=== PATIENT | male | born 1960 | race Caucasian/White ===

== ENCOUNTER → 2018-11-07 | Outpatient (CLI) | payer BC | LOC: RAD 13:34 | PROVIDERS: ATTEND Psychiatry & Neurology Neurology | DX: G93.1 Anoxic brain damage, not elsewhere classified (principal); Z53.8 Procedure and treatment not carried out for other reasons ==

== ENCOUNTER 2018-12-06 21:17 | Emergency (ER) | payer BC ==
[~2018-12-06] VITALS: Ht 177.8 cm; Wt 63.5 kg
[2018-12-06] MEDS ORDERED: TETANUS,DIPTH,PERTUSS P/F (BOOSTRIX) 0.5 ML VIAL IM ONE (21:45)
[2018-12-06] MEDS ORDERED: LIDOCAINE/EPI 2% 1:100,00 (XYLOCAINE) 20 ML VIAL INJ ONE (22:00)
--- NOTE | 2018-12-06 22:24 | ED Fall/Injury ---
General Chief Complaint: Trauma-Non Activation Stated Complaint: HEAD PAIN FROM FALL Source: family (, SON) (SAMIA COTTON DO) Allergies and Home Medications Allergies Coded Allergies: No Known Drug Allergies (Unverified , 12/06/18) Past Zdbhzds-Ohkeun-Zoqqfr Hx Patient Social History Alcohol Use: Denies Use Recreational Drug Use: No Smoking Status: Never a Smoker Recent Foreign Travel: No Contact w/Someone Who Travel: No Physical Abuse: No Sexual Abuse: No Mistreated: No Fear: No (SAMIA COTTON DO) Past Medical History Surgeries: No Respiratory: No Cardiac: Yes Heart Attack Genitourinary: No Gastrointestinal: No Musculoskeletal: No Endocrine: No HEENT: No Cancer: No Psychosocial: No (SAMIA COTTON DO) Physical Exam Vital Signs Capillary Refill : (SAMIA COTTON DO) Height, Weight, BMI Height: '" Weight: lbs. oz. kg; BMI Method: (SAMIA COTTON DO) Procedures/Interventions Wound Location: Face Wound Length (cm): 5.5 Wound's Depth, Shape: irregular, sub Q Wound Explored: clean Irrigated w/ Saline (ccs): 40 Anesthesia: Lidocaine w/ Epi Volume Anesthetic (ccs): 3 Suture: Ethlion Suture Size: 5-0 Number of Sutures: 12 Layer Closure?: 1 Number Deep Layer Sutures: 0 Progress Anesthetized with 3 mL of 2% lidocaine with epinephrine. Wound then scrubbed with chlorhexidine/saline solution and irrigated with saline. Wound edges then reapproximated and sutured with 12 simple interrupted sutures size 5-0 Ethilon. (EDUARDO AVILA APRN) Progress/Results/Core Measures Results/Orders My Orders Orders - EDUARDO AVILA APRN Lidocaine/Epi 2% 1:100,000 (Xylocaine/Ep (12/06/18 22:00) (EDUARDO AVILA APRN) Departure Impression Primary Impression: Status post fall Additional Impressions: Facial laceration Wtkgvmoxah-ehobpahxq-vwvrnul (DPT) vaccination administered at current visit Minor head injury without loss of consciousness Disposition: HOME, SELF-CARE Condition: Improved Departure-Patient Inst. Referrals: [facility] (PCP/Family) Primary Care Physician Patient Instructions: Diphtheria and Tetanus Toxoids, and Acellular Pertussis Vaccine, Laceration Repair With Stitches (DC), Minor Head Injury (DC), Preventing Falls in the Older Adult Add. Discharge Instructions: CLEAN WOUND TWICE A DAY WITH ANTIBACTERIAL SOAP AND WATER ON A Q-TIP, OTHERWISE KEEP CLEAN AND DRY SUTURES OUT IN 5-7 DAYS--RETURN TO ER FOR REMOVAL TYLENOL NEEDED FOR PAIN RETURN TO ER IF PROBLEMS All discharge instructions reviewed with patient and/or family. Voiced understanding. Scripts Sulfamethoxazole/Trimethoprim (Bactrim Ds Tablet) 1 Each Tablet 1 EACH PO BID, #20 TAB Prov: SAMIA COTTON DO 12/06/18 SAMIA COTTON DO Dec 06, 2018 22:24 EDUARDO AVILA APRN Dec 06, 2018 22:34
--- OUTSIDE RECORDS SUMMARY | 2018-12-06 22:26 | XMS REPORT ---
Author Author GARIMA Sesay Organization [facility] Address [address] [place] [address] Care Team Providers Care Sales Account Director Name Role Phone GARIMA Sesay Unavailable PROBLEMS Type Condition ICD9-CM Code [id number] Code Onset Dates Condition Status SNOMED Code Problem Mixed hyperlipidemia E78.2 Active 379767096 Problem Major depressive disorder with single episode, in full remission F32.5 Active 300582603 Problem Anoxic encephalopathy G93.1 Active 047345348 Problem Coronary artery disease involving [place] coronary artery of [place] heart without angina pectoris I25.10 Active [id number] ALLERGIES No Known Allergies ENCOUNTERS Encounter Location Date Diagnosis [place] [id number] [place] [address] December, Anoxic encephalopathy G93.1 [place] [id number] [place] [address] 5[address] December, Coronary artery disease involving [place] coronary artery of [place] heart without angina pectoris I25.10 ; Anoxic encephalopathy G93.1 ; Major depressive disorder with single episode, in full remission F32.5 and Mixed hyperlipidemia E78.2 [place] [id number] [place] [address] 18[address] Oct, Coronary artery disease involving [place] coronary artery of [place] heart without angina pectoris I25.10 ; Anoxic encephalopathy G93.1 ; Mixed hyperlipidemia E78.2 and Major depressive disorder with single episode, in full remission F32.5 [place] [id number] [place] [address] Oct, [place] [id number] [place] [address] Sep, Coronary artery disease involving [place] coronary artery of [place] heart without angina pectoris I25.10 and Anoxic encephalopathy G93.1 [place] [address] [facility]NOTE 3] [id number], [place] [address] Sep, Coronary artery disease involving [place] coronary artery of [place] heart without angina pectoris I25.10 [place] [address] [facility]NOTE 3] [id number], [place] [address] Sep, Coronary artery disease involving [place] coronary artery of [place] heart without angina pectoris I25.10 [place] [address] [facility]NOTE 3] [id number], [place] [address] Aug, Coronary artery disease involving [place] coronary artery of [place] heart without angina pectoris I25.10 and Anoxic encephalopathy G93.1 IMMUNIZATIONS No Known Immunizations SOCIAL HISTORY Never Assessed REASON FOR VISIT Head injury--CarleyleachMA, Refills on Venlafaxine, Pravastatin, Brilinta, Pota Chloride ER, Donepezil HCL, RisperiDone, Amantadine PLAN OF CARE Activity Details Follow Up needs establish care appointment, next available Reason:CAD, post PA VITAL SIGNS Weight 154.2 lbs 2017-08-29 Temperature 98.1 degrees Fahrenheit 2017-08-29 Heart Rate 90 bpm 2017-08-29 Respiratory Rate 20 2017-08-29 Blood pressure systolic 130 mmHg 2017-08-29 Blood pressure diastolic 58 mmHg 2017-08-29 MEDICATIONS Medication Instructions Dosage Frequency Start Date End Date Duration Status Pravastatin Sodium 40 mg Orally at bedtime 1 tablet Active Amantadine HCl 100 mg Orally as directed 2 capsules in the morning and 1 capsule in the evening Active Risperdal 2 MG Orally as directed 1/2 tablet in the morning, then three tablets at bedtime Active Brilinta 90 MG Orally Twice a day 1 tablet 12h Active Venlafaxine HCl ER 37.5 MG Orally Once a day 1 capsule with food 24h Active Potassium Chloride 10 MEQ Orally Twice a day 2 tablets with food 12h Active Donepezil HCl 10 mg Orally Once a day 1 tablet at bedtime 24h Aug, Active Donezepil HCl-10 mg 10 mg orally q day one tablet Active Aspirin 81 MG Orally Once a day 1 tablet 24h Aug, Active RESULTS No Results PROCEDURES No Known procedures INSTRUCTIONS MEDICATIONS ADMINISTERED No Known Medications MEDICAL (GENERAL) HISTORY Type Description Date Medical History out of hospital cardiac arrest- PEA then VTach- down time approx. 20 minutes Medical History [place]- stent to LAD and Circ Medical History Anoxic encephalopathy due to cardiac arrest Medical History splenic injury Medical History hyperlipidemia Surgical History Maker put in 2 stents 10/2016 Hospitalization History Hospitalization for Heart Attack 10/2016
--- OUTSIDE RECORDS SUMMARY | 2018-12-06 22:26 | XMS REPORT ---
Author Author ABRAHAMLALO Melton Organization [facility] Address [address] [place] [address] Care Team Providers Care Perioperative Tech Name Role Phone LALO ABRAHAM Unavailable PROBLEMS Type Condition ICD9-CM Code [id number] Code Onset Dates Condition Status SNOMED Code Problem Mixed hyperlipidemia E78.2 Active 146965397 Problem Major depressive disorder with single episode, in full remission F32.5 Active 381882561 Problem Anoxic encephalopathy G93.1 Active 240404664 Problem Coronary artery disease involving [place] coronary artery of [place] heart without angina pectoris I25.10 Active 9026378781040 ALLERGIES No Known Allergies ENCOUNTERS Encounter Location Date Diagnosis [facility] [id number] [place] [address] December, Anoxic encephalopathy G93.1 [facility] [id number] [place] [address] December, Coronary artery disease involving [place] coronary artery of [place] heart without angina pectoris I25.10 ; Anoxic encephalopathy G93.1 ; Major depressive disorder with single episode, in full remission F32.5 and Mixed hyperlipidemia E78.2 [facility] [id number] [place] [address] 24687- [address] 05 Oct, 2017 Coronary artery disease involving [place] coronary artery of [place] heart without angina pectoris I25.10 ; Anoxic encephalopathy G93.1 ; Mixed hyperlipidemia E78.2 and Major depressive disorder with single episode, in full remission F32.5 [facility] [id number] [place] [address] Oct, [facility] [id number] [place] [address] 629[address]- 27[address] Sep, Coronary artery disease involving [place] coronary artery of [place] heart without angina pectoris I25.10 and Anoxic encephalopathy G93.1 [facility] [address] [facility] [id number] [place] [address] Sep, Coronary artery disease involving [place] coronary artery of [place] heart without angina pectoris I25.10 [facility] [address] [facility] [id number], [place] [address] Sep, Coronary artery disease involving [place] coronary artery of [place] heart without angina pectoris I25.10 [place] [address] [facility] [id number], [place] [address] Aug, Coronary artery disease involving [place] coronary artery of [place] heart without angina pectoris I25.10 and Anoxic encephalopathy G93.1 IMMUNIZATIONS No Known Immunizations SOCIAL HISTORY Never Assessed REASON FOR VISIT Establish Care savanah amezcua, 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 (medicaid pending , wanting neurology referral once medicaid is in place) PLAN OF CARE Activity Details Follow Up 3 Months Reason:CHM/Anoxic injury VITAL SIGNS Height 70 in 2017-10-07 Weight 152.6 lbs 2017-10-07 Temperature 98.6 degrees Fahrenheit 2017-10-07 Heart Rate 94 bpm 2017-10-07 Respiratory Rate 20 2017-10-07 BMI 21.89 kg/m2 2017-10-07 Blood pressure systolic 118 mmHg 2017-10-07 Blood pressure diastolic 64 mmHg 2017-10-07 MEDICATIONS Medication Instructions Dosage Frequency Start Date End Date Duration Status Amantadine HCl 100 mg Orally 2 times a day 2 capsules in the morning and 1 capsule in the evening 12h Jul, 90 days Active Pravastatin Sodium 40 MG Orally Once a day 1 tablets 24h 90 days Active Risperdal 2 MG Orally 2 times a day 1/2 tablet in the morning, then three tablets at bedtime 12h 90 days Active Donepezil HCl 10 mg Orally Once a day 1 tablet at bedtime 24h Aug, Active Potassium Chloride 10 MEQ Orally Twice a day 2 tablets with food 12h Jul, 90 days Active Brilinta 90 MG Orally Twice a day 1 tablet 12h 90 days Active Venlafaxine HCl ER 37.5 MG Orally Once a day 1 capsule with food 24h 90 days Active RESULTS No Results PROCEDURES No Known [...]
--- OUTSIDE RECORDS SUMMARY | 2018-12-06 22:26 | XMS REPORT ---
Author Author ABRAHAMLALO Melton Organization [facility] Address [address] [place] [address] Care Team Providers Care Funeral Home Assistant Name Role Phone ABRAHAMLALO Melton Unavailable PROBLEMS Type Condition ICD9-CM Code [id number] Code Onset Dates Condition Status SNOMED Code Problem Mixed hyperlipidemia E78.2 Active 042765365 Problem Major depressive disorder with single episode, in full remission F32.5 Active 050003514 Problem Anoxic encephalopathy G93.1 Active 825565679 Problem Coronary artery disease involving [place] coronary artery of [place] heart without angina pectoris I25.10 Active 9217079316981 ALLERGIES No Information ENCOUNTERS Encounter Location Date Diagnosis [facility] [id number] [place] [address] December, Anoxic encephalopathy G93.1 [facility] [id number] [place] [address] 7[address]- [address] December, Coronary artery disease involving [place] coronary artery of [place] heart without angina pectoris I25.10 ; Anoxic encephalopathy G93.1 ; Major depressive disorder with single episode, in full remission F32.5 and Mixed hyperlipidemia E78.2 [facility] [id number] [place] [address] 35446- 67[address] 05 Oct, 2017 Coronary artery disease involving [place] coronary artery of [place] heart without angina pectoris I25.10 ; Anoxic encephalopathy G93.1 ; Mixed hyperlipidemia E78.2 and Major depressive disorder with single episode, in full remission F32.5 [facility] [id number] [place] [address] 29353- 6797 Oct, [facility] [id number] [place] [address] 05736- [address]28 Sep, Coronary artery disease involving [place] coronary artery of [place] heart without angina pectoris I25.10 and Anoxic encephalopathy G93.1 [facility] [address] [facility] [id number], [place] [address] Sep, Coronary artery disease involving [place] coronary artery of [place] heart without angina pectoris I25.10 [facility] [address] [facility] [id number], [place] [address] Sep, Coronary artery disease involving [place] coronary artery of [place] heart without angina pectoris I25.10 [facility] [address] [facility] [id number], [place] [address] Aug, Coronary artery disease involving [place] coronary artery of [place] heart without angina pectoris I25.10 and Anoxic encephalopathy G93.1 IMMUNIZATIONS No Known Immunizations SOCIAL HISTORY Never Assessed REASON FOR VISIT Lab results PLAN OF CARE VITAL SIGNS MEDICATIONS Unknown Medications RESULTS No Results PROCEDURES No Known procedures INSTRUCTIONS MEDICATIONS ADMINISTERED No Known Medications MEDICAL (GENERAL) HISTORY Type Description Date Medical History out of hospital cardiac arrest- PEA then VTach- down time approx. 20 minutes Medical History [place]- stent to LAD and Circ Medical History Anoxic encephalopathy due to cardiac arrest Medical History splenic injury Medical History hyperlipidemia Surgical History Maker put in 2 stents 10/2016 Hospitalization History Hospitalization for Heart Attack 10/2016
--- OUTSIDE RECORDS SUMMARY | 2018-12-06 22:26 | XMS REPORT ---
Author Author KRANTHI THRASHER Organization [facility] Address [address] [place] [address] Care Team Providers Care Switch Operator Name Role Phone KRANTHI THRASHER Unavailable PROBLEMS Type Condition ICD9-CM Code [id number] Code Onset Dates Condition Status SNOMED Code Problem Mixed hyperlipidemia E78.2 Active 939707721 Problem Major depressive disorder with single episode, in full remission F32.5 Active 646290407 Problem Anoxic encephalopathy G93.1 Active 674577923 Problem Coronary artery disease involving [place] coronary artery of [place] heart without angina pectoris I25.10 Active 3404796116605 ALLERGIES No Information ENCOUNTERS Encounter Location Date Diagnosis [facility] [id number] [place] [address] Aug, [facility] [id number] [place] [address] 11170- 98[address] May, Anoxic encephalopathy G93.1 ; Coronary artery disease involving [place] coronary artery of [place] heart without angina pectoris I25.10 and Abnormal thyroid stimulating hormone (TSH) level R79.89 [place] [address] [address] December, Anoxic encephalopathy G93.1 [facility] [id number] [place] [address] 47168- 3057 December, Coronary artery disease involving [place] coronary artery of [place] heart without angina pectoris I25.10 ; Anoxic encephalopathy G93.1 ; Major depressive disorder with single episode, in full remission F32.5 and Mixed hyperlipidemia E78.2 [facility] [address] [place] [address] 49882- [address] 05 Oct, 2017 Coronary artery disease involving [place] coronary artery of [place] heart without angina pectoris I25.10 ; Anoxic encephalopathy G93.1 ; Mixed hyperlipidemia E78.2 and Major depressive disorder with single episode, in full remission F32.5 [place] [address] [address] Oct, [place] [address] [place], [place] [address] Sep, Coronary artery disease involving [place] coronary artery of [place] heart without angina pectoris I25.10 and Anoxic encephalopathy G93.1 [place] [address] [place] [address] 26950- [address] Sep, Coronary artery disease involving [place] coronary artery of [place] heart without angina pectoris I25.10 [place] [address] [place] [address] 23856- 1385 Sep, Coronary artery disease involving [place] coronary artery of [place] heart without angina pectoris I25.10 [place] [address] [place] [address] 23847- 4960 Aug, Coronary artery disease involving [place] coronary artery of [place] heart without angina pectoris I25.10 and Anoxic encephalopathy G93.1 IMMUNIZATIONS No Known Immunizations SOCIAL HISTORY Never Assessed REASON FOR VISIT Requests return call PLAN OF CARE VITAL SIGNS MEDICATIONS Unknown Medications RESULTS No Results PROCEDURES No Known procedures INSTRUCTIONS MEDICATIONS ADMINISTERED No Known Medications MEDICAL (GENERAL) HISTORY Type Description Date Medical History out of hospital cardiac arrest- PEA then VTach- down time approx. 20 minutes Medical History [place]- stent to LAD and Circ Medical History Anoxic encephalopathy due to cardiac arrest Medical History splenic injury Medical History hyperlipidemia Surgical History Maker put in 2 stents 10/2016 Hospitalization History Hospitalization for Heart Attack 10/2016
--- OUTSIDE RECORDS SUMMARY | 2018-12-06 22:26 | XMS REPORT ---
Author Author ABRAHAMLALO Melton Organization [facility] Address [address] [place] [address] Care Team Providers Care Travel Registered Nurse Oncology Name Role Phone LALO ABRAHAM Unavailable PROBLEMS Type Condition ICD9-CM Code YZX07-XL Code Onset Dates Condition Status SNOMED Code Problem Mixed hyperlipidemia E78.2 Active 705259071 Problem Major depressive disorder with single episode, in full remission F32.5 Active 307001072 Problem Anoxic encephalopathy G93.1 Active 086834030 Problem Coronary artery disease involving [place] coronary artery of [place] heart without angina pectoris I25.10 Active 5963106872058 ALLERGIES No Known Allergies ENCOUNTERS Encounter Location Date Diagnosis [facility] [id number] [place] [address] December, Anoxic encephalopathy G93.1 [facility] [id number] [place] [address] 29259- 9[address] December, Coronary artery disease involving [place] coronary artery of [place] heart without angina pectoris I25.10 ; Anoxic encephalopathy G93.1 ; Major depressive disorder with single episode, in full remission F32.5 and Mixed hyperlipidemia E78.2 [facility] [id number] [place] [address] 03203- [address] 05 Oct, 2017 Coronary artery disease involving [place] coronary artery of [place] heart without angina pectoris I25.10 ; Anoxic encephalopathy G93.1 ; Mixed hyperlipidemia E78.2 and Major depressive disorder with single episode, in full remission F32.5 [facility] [id number] [place] [address] 40622- 20[address] Oct, [facility] [id number] [place] [address] 46213- 1306 Sep, Coronary artery disease involving [place] coronary artery of [place] heart without angina pectoris I25.10 and Anoxic encephalopathy G93.1 [facility] [address] [facility] [id number] [place] [address] Sep, Coronary artery disease involving [place] coronary artery of [place] heart without angina pectoris I25.10 [facility] [address] [facility] [id number] [place] [address] Sep, Coronary artery disease involving [place] coronary artery of [place] heart without angina pectoris I25.10 [place] [address] [facility] [id number] [place] [address] Aug, Coronary artery disease involving [place] coronary artery of [place] heart without angina pectoris I25.10 and Anoxic encephalopathy G93.1 IMMUNIZATIONS No Known Immunizations SOCIAL HISTORY Never Assessed REASON FOR VISIT 3 mo f/u-Tmcdonald PLAN OF CARE Activity Details Follow Up 3 Months Reason:CHM/Anoxic injury VITAL SIGNS Height 70 in 2018-01-16 Weight 148.2 lbs 2018-01-16 Temperature 97.7 degrees Fahrenheit 2018-01-16 Heart Rate 80 bpm 2018-01-16 Respiratory Rate 20 2018-01-16 BMI 21.26 kg/m2 2018-01-16 Blood pressure systolic 134 mmHg 2018-01-16 Blood pressure diastolic 78 mmHg 2018-01-16 MEDICATIONS Medication Instructions Dosage Frequency Start Date End Date Duration Status Pravastatin Sodium 40 MG Orally Once a day 1 tablets 24h 90 days Active Brilinta 90 MG Orally Twice a day 1 tablet 12h 90 days Active Risperdal 2 MG Orally 2 times a day 1/2 tablet in the morning, then three tablets at bedtime 12h 90 days Active Venlafaxine HCl ER 37.5 MG Orally Once a day 1 capsule with food 24h 90 days Active Amantadine HCl 100 mg Orally 2 times a day 2 capsules in the morning and 1 capsule in the evening 12h 90 days Active Potassium Chloride 10 MEQ Orally Twice a day 2 tablets with food 12h 90 days Active Donepezil HCl 10 mg Orally Once a day 1 tablet at bedtime 24h Aug, 90 days Active RESULTS No Results PROCEDURES Procedure Date Ordered Result Body Site COMPLETE CBC W/AUTO DIFF WBC January 16, 2018 COMPREHEN METABOLIC PANEL January 16, 2018 LIPID PANEL January 16, 2018 ASSAY THYROID STIM HORMONE January 16, 2018 VENIPUNCT, ROUTINE* January 16, 2018 INSTRUCTIONS MEDICATIONS ADMINISTERED No Known Medications MEDICAL (GENERAL) HISTORY Type Description Date Medical History out of hospital cardiac arrest- PEA then VTach- down time approx. 20 minutes Medical History [place]- stent to LAD and Circ Medical History Anoxic encephalopathy due to cardiac arrest Medical History splenic injury Medical History hyperlipidemia Surgical History Maker put in 2 stents 10/2016 Hospitalization History Hospitalization for Heart Attack 10/2016
--- OUTSIDE RECORDS SUMMARY | 2018-12-06 22:26 | XMS REPORT ---
Author Author ABRAHAMLALO Melton Organization [facility] Address [address] [place] [address] Care Team Providers Care Power Cutting Machine Operator Name Role Phone ABRAHAMLALO Melton Unavailable PROBLEMS Type Condition ICD9-CM Code SSL75-EO Code Onset Dates Condition Status SNOMED Code Problem Mixed hyperlipidemia E78.2 Active 972824778 Problem Major depressive disorder with single episode, in full remission F32.5 Active 054048534 Problem Anoxic encephalopathy G93.1 Active 177351766 Problem Coronary artery disease involving [place] coronary artery of [place] heart without angina pectoris I25.10 Active [id number] ALLERGIES No Information ENCOUNTERS Encounter Location Date Diagnosis [facility] [id number] [place] [address] December, Anoxic encephalopathy G93.1 [facility] [id number] [place] [address] December, Coronary artery disease involving [place] coronary artery of [place] heart without angina pectoris I25.10 ; Anoxic encephalopathy G93.1 ; Major depressive disorder with single episode, in full remission F32.5 and Mixed hyperlipidemia E78.2 [facility] [id number] [place] [address] 05 Oct, 2017 Coronary artery disease involving [place] coronary artery of [place] heart without angina pectoris I25.10 ; Anoxic encephalopathy G93.1 ; Mixed hyperlipidemia E78.2 and Major depressive disorder with single episode, in full remission F32.5 [facility] [id number] [place] [address] Oct, [facility] [id number] [place] [address] Sep, Coronary artery disease involving [place] coronary artery of [place] heart without angina pectoris I25.10 and Anoxic encephalopathy G93.1 [facility] [address] [facility] [id number] [address] Sep, Coronary artery disease involving [place] coronary artery of [place] heart without angina pectoris I25.10 [facility] [address] [facility] [id number] [address] Sep, Coronary artery disease involving [place] coronary artery of [place] heart without angina pectoris I25.10 [facility] [address] [facility] [id number] [address] Aug, Coronary artery disease involving [place] coronary artery of [place] heart without angina pectoris I25.10 and Anoxic encephalopathy G93.1 IMMUNIZATIONS No Known Immunizations SOCIAL HISTORY Never Assessed REASON FOR VISIT refill PLAN OF CARE VITAL SIGNS MEDICATIONS Medication Instructions Dosage Frequency Start Date End Date Duration Status Donepezil HCl 10 mg Orally Once a day 1 tablet at bedtime 24h Aug, 90 days Active Pravastatin Sodium 20 mg Orally at bedtime 2 tablets 90 days Active Risperdal 2 MG Orally as directed 1/2 tablet in the morning, then three tablets at bedtime 25 days Active Potassium Chloride 10 MEQ Orally Twice a day 2 tablets with food 12h Oct, 45 days Active Venlafaxine HCl ER 37.5 MG Orally Once a day 1 capsule with food 24h Active RESULTS No Results PROCEDURES No Known procedures INSTRUCTIONS MEDICATIONS ADMINISTERED No Known Medications MEDICAL (GENERAL) HISTORY Type Description Date Medical History out of hospital cardiac arrest- PEA then VTach- down time approx. 20 minutes Medical History [place]- stent to LAD and Circ Medical History Anoxic encephalopathy due to cardiac arrest Medical History splenic injury Medical History hyperlipidemia Surgical History Maker put in 2 stents 10/2016 Hospitalization History Hospitalization for Heart Attack 10/2016
--- OUTSIDE RECORDS SUMMARY | 2018-12-06 22:26 | XMS REPORT ---
Author Author KRANTHI THRASHER Organization [facility] Address [address] [place] [address] Care Team Providers Care Social Psychologist Name Role Phone KRANTHI THRASHER Unavailable PROBLEMS Type Condition ICD9-CM Code OAA75-LK Code Onset Dates Condition Status SNOMED Code Problem Mixed hyperlipidemia E78.2 Active 925840537 Problem Major depressive disorder with single episode, in full remission F32.5 Active 124195978 Problem Anoxic encephalopathy G93.1 Active 737813753 Problem Coronary artery disease involving [place] coronary artery of [place] heart without angina pectoris I25.10 Active [id number] ALLERGIES No Known Allergies ENCOUNTERS Encounter Location Date Diagnosis [place] [id number] [address] May, Anoxic encephalopathy G93.1 ; Coronary artery disease involving [place] coronary artery of [place] heart without angina pectoris I25.10 and Abnormal thyroid stimulating hormone (TSH) level R79.89 [place] [id number] [place] [address] December, Anoxic encephalopathy G93.1 [place] [id number] [place] [address] December, Coronary artery disease involving [place] coronary artery of [place] heart without angina pectoris I25.10 ; Anoxic encephalopathy G93.1 ; Major depressive disorder with single episode, in full remission F32.5 and Mixed hyperlipidemia E78.2 [place] [address] [address] 05 Oct, 2017 Coronary artery disease involving [place] coronary artery of [place] heart without angina pectoris I25.10 ; Anoxic encephalopathy G93.1 ; Mixed hyperlipidemia E78.2 and Major depressive disorder with single episode, in full remission F32.5 [place] [address] [place] [address] Oct, [facility] [address], [place] [address] Sep, Coronary artery disease involving [place] coronary artery of [place] heart without angina pectoris I25.10 and Anoxic encephalopathy G93.1 [place] [address], [place] [address] Sep, Coronary artery disease involving [place] coronary artery of [place] heart without angina pectoris I25.10 [place] [address] [address] Sep, Coronary artery disease involving [place] coronary artery of [place] heart without angina pectoris I25.10 [place] [address] [place] [address] Aug, Coronary artery disease involving [place] coronary artery of [place] heart without angina pectoris I25.10 and Anoxic encephalopathy G93.1 IMMUNIZATIONS No Known Immunizations SOCIAL HISTORY Never Assessed REASON FOR VISIT New provider visit-JES banks, want to discuss about seeing a neurologist PLAN OF CARE Activity Details Follow Up prn Reason: VITAL SIGNS Height 70 in 2018-05-14 Weight 140.0 lbs 2018-05-14 Temperature 98.6 degrees Fahrenheit 2018-05-14 Heart Rate 76 bpm 2018-05-14 Respiratory Rate 20 2018-05-14 BMI 20.09 kg/m2 2018-05-14 Blood pressure systolic 96 mmHg 2018-05-14 Blood pressure diastolic 68 mmHg 2018-05-14 MEDICATIONS Medication Instructions Dosage Frequency Start Date End Date Duration Status Amantadine HCl 100 mg Orally 2 times a day 2 capsules in the morning and 1 capsule in the evening 12h 90 days Active Venlafaxine HCl ER 37.5 MG Orally Once a day 1 capsule with food 24h 90 days Active Risperdal 2 MG Orally 2 times a day 1/2 tablet in the morning, then three tablets at bedtime 12h 90 days Active Donepezil HCl 10 mg Orally Once a day 1 tablet at bedtime 24h 28 Aug, 2017 90 days Active Brilinta 90 MG Orally Twice a day 1 tablet 12h 90 days Active Potassium Chloride 10 MEQ Orally Twice a day 2 tablets with food 12h 90 days Active Pravastatin Sodium 40 MG Orally Once a day 1 tablets 24h 90 days Active RESULTS No Results [...]
--- OUTSIDE RECORDS SUMMARY | 2018-12-06 22:27 | XMS REPORT ---
Author Author GARIMA Sesay Organization [facility] Address [address] [place] [address] Care Team Providers Care Plasticator Name Role Phone GARIMA Sesay Unavailable PROBLEMS Type Condition ICD9-CM Code [id number] Code Onset Dates Condition Status SNOMED Code Problem Mixed hyperlipidemia E78.2 Active 989470766 Problem Major depressive disorder with single episode, in full remission F32.5 Active 405137390 Problem Anoxic encephalopathy G93.1 Active 597642987 Problem Coronary artery disease involving [place] coronary artery of [place] heart without angina pectoris I25.10 Active [id number] ALLERGIES No Information ENCOUNTERS Encounter Location Date Diagnosis [place] [id number] [place] [address] December, Anoxic encephalopathy G93.1 [place] [id number] [place] [address] December, Coronary artery disease involving [place] coronary artery of [place] heart without angina pectoris I25.10 ; Anoxic encephalopathy G93.1 ; Major depressive disorder with single episode, in full remission F32.5 and Mixed hyperlipidemia E78.2 [place] [id number] [place] [address] 05 Oct, 2017 Coronary artery disease involving [place] coronary artery of [place] heart without angina pectoris I25.10 ; Anoxic encephalopathy G93.1 ; Mixed hyperlipidemia E78.2 and Major depressive disorder with single episode, in full remission F32.5 [facility] [id number] [place] [address] Oct, [facility] [id number] [place] [address] Sep, Coronary artery disease involving [place] coronary artery of [place] heart without angina pectoris I25.10 and Anoxic encephalopathy G93.1 [facility] [address] [facility] [id number], [place] [address] Sep, Coronary artery disease involving [place] coronary artery of [place] heart without angina pectoris I25.10 [facility] [address] [facility] [id number], [place] [address] Sep, Coronary artery disease involving [place] coronary artery of [place] heart without angina pectoris I25.10 [place] [address] [facility] [id number], [place] [address] Aug, Coronary artery disease involving [place] coronary artery of [place] heart without angina pectoris I25.10 and Anoxic encephalopathy G93.1 IMMUNIZATIONS No Known Immunizations SOCIAL HISTORY Never Assessed REASON FOR VISIT PALS PLAN OF CARE VITAL SIGNS MEDICATIONS Medication Instructions Dosage Frequency Start Date End Date Duration Status Brilinta 90 MG Orally Twice a day 1 tablet 12h 90 days Active RESULTS No Results PROCEDURES No Known procedures INSTRUCTIONS MEDICATIONS ADMINISTERED No Known Medications MEDICAL (GENERAL) HISTORY Type Description Date Medical History out of hospital cardiac arrest- PEA then VTach- down time approx. 20 minutes Medical History [place]- stent to LAD and Circ Medical History Anoxic encephalopathy due to cardiac arrest Medical History splenic injury Medical History hyperlipidemia Surgical History Maker put in 2 stents 10/2016 Hospitalization History Hospitalization for Heart Attack 10/2016
--- OUTSIDE RECORDS SUMMARY | 2018-12-06 22:27 | XMS REPORT ---
Author Author ABRAHAMLALO Melton Organization [facility] Address [address] [place] [address] Care Team Providers Care Senior Business Analyst Name Role Phone ABRAHAMLALO Melton Unavailable PROBLEMS Type Condition ICD9-CM Code HJO14-GI Code Onset Dates Condition Status SNOMED Code Problem Mixed hyperlipidemia E78.2 Active 246739977 Problem Major depressive disorder with single episode, in full remission F32.5 Active 366651851 Problem Anoxic encephalopathy G93.1 Active 833509804 Problem Coronary artery disease involving [place] coronary artery of [place] heart without angina pectoris I25.10 Active [id number] ALLERGIES No Information ENCOUNTERS Encounter Location Date Diagnosis [facility] [id number] [place] [address] December, Anoxic encephalopathy G93.1 [facility] [id number] [place] [address] December, Coronary artery disease involving [place] coronary artery of [place] heart without angina pectoris I25.10 ; Anoxic encephalopathy G93.1 ; Major depressive disorder with single episode, in full remission F32.5 and Mixed hyperlipidemia E78.2 [facility] [id number] [place] [address] 05 Oct, 2017 Coronary artery disease involving [place] coronary artery of [place] heart without angina pectoris I25.10 ; Anoxic encephalopathy G93.1 ; Mixed hyperlipidemia E78.2 and Major depressive disorder with single episode, in full remission F32.5 [facility] [id number] [place] [address] Oct, [facility] [id number] [place] [address] Sep, Coronary artery disease involving [place] coronary artery of [place] heart without angina pectoris I25.10 and Anoxic encephalopathy G93.1 [facility] [address] [facility] [id number] [address] Sep, Coronary artery disease involving [place] coronary artery of [place] heart without angina pectoris I25.10 [facility] [address] [facility] [id number] [address] Sep, Coronary artery disease involving [place] coronary artery of [place] heart without angina pectoris I25.10 [facility] [address] [facility] [id number] [address] Aug, Coronary artery disease involving [place] coronary artery of [place] heart without angina pectoris I25.10 and Anoxic encephalopathy G93.1 IMMUNIZATIONS No Known Immunizations SOCIAL HISTORY Never Assessed REASON FOR VISIT Repository Medication PLAN OF CARE VITAL SIGNS MEDICATIONS Medication [...] down time approx. 20 minutes Medical History [place]- stent to LAD and Circ Medical History Anoxic encephalopathy due to cardiac arrest Medical History splenic injury Medical History hyperlipidemia Surgical History Maker put in 2 stents 10/2016 Hospitalization History Hospitalization for Heart Attack 10/2016
[2018-12-06] MEDS ORDERED: RX-TRIMETH/SULFA. 160-800 MG (BACTRIM DS) TAB PPK#2 PO STA (22:42)
[2018-12-06] MEDS ORDERED: SULF1TAB35 PO (22:45)
[2018-12-06 23:00] VITALS: BP 92/69
--- NOTE | 2018-12-07 07:01 | Diagnostic Imaging Report ---
PROCEDURE: CT head, face, and cervical spine without contrast. TECHNIQUE: Multiple contiguous axial images were obtained through the head, neck, and facial bones without the use of intravenous contrast. Sagittal and coronal reformations through the cervical spine and facial bones were also performed. Auto Exposure Controls were utilized during the CT exam to meet ALARA standards for radiation dose reduction. INDICATION: Head and neck pain after fall. FINDINGS: There is mild prominence of the ventricles and sulci. There is no hydrocephalus. There is no midline shift. There is no intracranial mass, hemorrhage or extra-axial fluid collection. Calvarium is intact. Sinuses and mastoid air cells are clear. The alignment of the cervical spine is normal. Vertebral body heights are well-maintained. There is no fracture or traumatic subluxation. The odontoid is intact. The lateral masses are well aligned. There is some posterior facet arthropathy. The prevertebral soft tissues are within normal limits. Lung apices are clear. IMPRESSION: Age-appropriate atrophy however no acute intracranial abnormality. Mild cervical spondylosis without acute fracture or traumatic subluxation. Dictated by: Dictated on workstation # [id number]
== END 2018-12-06 23:00 | disposition home or self-care (01) ==
LOC: EDUNIT# 21:17 → ER 21:18
DX: S01.81XA Laceration without foreign body of other part of head, initial encounter (principal); S09.90XA Unspecified injury of head, initial encounter; I25.2 Old myocardial infarction; Z23 Encounter for immunization; W19.XXXA Unspecified fall, initial encounter
CPT/HCPCS: 70450; 70486; 72125; 90471; 90715

== ENCOUNTER 2018-12-14 11:52 | Emergency (ER) | payer BC ==
[~2018-12-14] VITALS: Ht 170.2 cm; Wt 63.5 kg
[~2018-12-14 11:52] MED LIST: SULF1TAB35 PO
[2018-12-14 12:10] VITALS: BP 101/67
== END 2018-12-14 12:10 | disposition home or self-care (01) ==
LOC: EDUNIT# 11:52 → ER 11:54
DX: S01.81XD Laceration without foreign body of other part of head, subsequent encounter (principal); X58.XXXD Exposure to other specified factors, subsequent encounter

== ENCOUNTER → 2021-06-07 | Outpatient (CLI) | payer MEDICARE, OTHER ==
[~2021-06-07] MED LIST changes: -SULF1TAB35 PO; +SULF1TAB38 PO
== END ==
LOC: CARD 12:53
PROVIDERS: ATTEND Internal Medicine Cardiovascular Disease
DX: I25.10 Atherosclerotic heart disease of native coronary artery without angina pectoris (principal); R07.2 Precordial pain; I10 Essential (primary) hypertension
CPT/HCPCS: 93306

== ENCOUNTER 2022-06-11 08:54 | Emergency (ER) | payer MEDICARE, OTHER ==
[~2022-06-11] VITALS: Ht 177.8 cm; Wt 81.0 kg
--- NOTE | 2022-06-11 09:24 | ED Chest Pain ---
General Chief Complaint: Chest Pain Stated Complaint: CHEST PAIN Source: family () Exam Limitations: physical impairment History of Present Illness Date Seen by Provider: Jun 11, 2022 Time Seen by Provider: 09:10 Initial Comments Patient is a 61-year-old male who presents to the emergency department today with a chief complaint of chest pain. He has a history of coronary artery disease with a " maker" 5 years ago status post cardiac arrest and signif icant anoxic brain injury. He does live at home with his who is his primary rubber compounder mixer. He has significant difficulty with activities of daily living however is able to eat and drink, ambulate. She states he got up between 730 and 8 AM this morning and a little after 8 started complaining of pain to the chest, upper abdomen and then she states it seemed he complained of pain in various parts of his body. She states is not unusual for him to complain of chest pain. He has not seen a parachute harness rigger in at least a year. His parachute harness rigger here at [facility] is Dr. Nam. He is currently denying pain anywhere. He does not appear short of breath. His vital signs are stable/normal. He exhibits no increased work of breathing. His color is good. Bedside EKG is unremarkable. Will obtain cardiac evaluation labs and likely keep him for a 3-hour, repeating labs at noon. No clinical or objective findings to warrant sepsis work- up/emergent CT etc. Patient is unable to provide the HPI, review of systems past medical family or social history due to his history of anoxic brain injury therefore all of the history and review of systems are obtained from the . Timing/Duration: 1 hour Location: central, epigastric Prior CP/Workup: cardiac cath, heart attack ASA po MOVIE SHOT [place]ERAMAN: No NTG SL MOVIE SHOT [place]: No Allergies and Home Medications Allergies Coded Allergies: No Known Drug Allergies (Unverified , 12/06/18) Patient Home Medication List Home Medication List Reviewed: Yes Sulfamethoxazole/Trimethoprim (Bactrim Ds Tablet) 1 Each Tablet, 1 EACH PO BID Prescribed by: SAMIA COTTON on 12/06/18 [id number] Review of Systems Review of Systems Constitutional: see HPI EENTM: No Symptoms Reported Respiratory: No Symptoms Reported Cardiovascular: Chest Pain Gastrointestinal: No Symptoms Reported, Other (Last bowel movement this morning, nonblack nonbloody) Genitourinary: No Symptoms Reported Musculoskeletal: no symptoms reported Skin: no symptoms reported Psychiatric/Neurological: No Symptoms Reported All Other Systems Reviewed Negative Unless Noted: Yes Past Whevqnq-Qmlsbu-Dbpetp Hx Patient Social History Tobacco Use?: No Smoking Status: Former Smoker Substance use?: No Alcohol Use?: No Pt feels they are or have been: No Immunizations Up To Date Influenza Vaccine Up-to-Date: No; Not Current First/Initial COVID19 Vaccinat: 2020 Second COVID19 Vaccination [place]: 2020 Past Medical History Surgery/Hospitalization HX: STENT NE, ANOXIC BRAIN INJURY Surgeries: No Respiratory: No Cardiac: Yes Heart Attack Genitourinary: No Gastrointestinal: No Musculoskeletal: No Endocrine: No HEENT: No Cancer: No Psychosocial: No Physical Exam Vital Signs Vital Signs - First Documented 06/11/22 08:58 Temp 36.1 Pulse 73 Resp 17 B/P (MAP) 113/83 (93) Capillary Refill : Height, Weight, BMI Height: 5'7.00" Weight: 140lbs. oz. 63.695834vo; 21.09 BMI Method:Estimated General Appearance: No Apparent Distress, WD/WN HEENT: PERRL/EOMI, Moist Mucous Membranes, Other (Edentulous) Neck: Normal Inspection Respiratory: Lungs Clear, Normal Breath Sounds, No Accessory Muscle Use, No Respiratory Distress Cardiovascular: Regular Rate, Rhythm, Normal Peripheral Pulses Gastrointestinal: Normal Bowel Sounds, Non Tender, Soft Extremity: Normal Capillary Refill, Normal Inspection, Normal Range of Motion, No Pedal Edema Neurologic/Psychiatric: Alert, Normal Mood/Affect Skin: Normal Color, Warm/Dry Procedures/Interventions Suture Size: 5-0 Progress/Results/Core Measures Results/Orders Lab Results Laboratory Tests Test 06/11/22 09:04 06/11/22 11:43 Range/Units White Blood Count 3.5 L 4.3-11.0 10^3/uL Red Blood Count 4.31 4.30-5.52 10^6/uL Hemoglobin 14.6 13.3-17.7 g/dL Hematocrit 43 40-54 % Mean Corpuscular Volume 99 80-99 fL Mean Corpuscular Hemoglobin 34 25-34 pg Mean Corpuscular Hemoglobin Concent 34 32-36 g/dL Red Cell Distribution Width 12.0 10.0-14.5 % Platelet Count 203 130-400 10^3/uL Mean Platelet Volume 8.5 L 9.0-12.2 fL Immature Granulocyte % (Auto) 0 % Neutrophils (%) (Auto) 38 L 42-75 % Lymphocytes (%) (Auto) 44 12-44 % Monocytes (%) (Auto) 12 0-12 % Eosinophils (%) (Auto) 4 0-10 % Basophils (%) (Auto) 1 0-10 % Neutrophils # (Auto) 1.4 L 1.8-7.8 10^3/uL Lymphocytes # (Auto) 1.6 1.0-4.0 10^3/uL Monocytes # (Auto) 0.4 0.0-1.0 10^3/uL Eosinophils # (Auto) 0.2 0.0-0.3 10^3/uL Basophils # (Auto) 0.0 0.0-0.1 10^3/uL Immature Granulocyte # (Auto) 0.0 0.0-0.1 10^3/uL Prothrombin Time 12.9 12.2-14.7 SEC INR Comment 0.9 0.8-1.4 Activated Partial Thromboplast Time 26 24-35 SEC Sodium Level 138 135-145 MMOL/L Potassium Level 4.1 3.6-5.0 MMOL/L Chloride Level 106 98-107 MMOL/L Carbon Dioxide Level 26 21-32 MMOL/L Anion Gap 6 5-14 MMOL/L Blood Urea Nitrogen 15 7-18 MG/DL Creatinine 0.86 0.60-1.30 MG/DL Estimat Glomerular Filtration Rate 99 BUN/Creatinine Ratio 17 Glucose Level 89 70-105 MG/DL Calcium Level 8.9 8.5-10.1 MG/DL Corrected Calcium 8.8 8.5-10.1 MG/DL Magnesium Level 2.0 1.6-2.4 MG/DL Total Bilirubin 0.5 0.1-1.0 MG/DL Aspartate Amino Transf (AST/SGOT) 16 5-34 U/L Alanine Aminotransferase (ALT/SGPT) 13 0-55 U/L Alkaline Phosphatase 82 40-136 U/L Myoglobin 32.3 10.0-92.0 NG/ML Troponin I < 0.028 < 0.028 <0.028 NG/ML Total Protein 7.2 6.4-8.2 GM/DL Albumin 4.1 3.2-4.5 GM/DL My Orders Orders - NANCY ESPINAL MD Ekg Tracing (06/11/22 09:06) Cbc With Automated Diff (06/11/22:19) Magnesium (06/11/22:19) Chest 1 View, Ap/Pa Only (06/11/22:19) Comprehensive Metabolic Panel (06/11/22:19) Myoglobin Serum (06/11/22:19) Protime With Inr (06/11/22:) Partial Thromboplastin Time (06/11/22:19) O2 (06/11/22:19) Monitor-Rhythm Ecg Trace Only (06/11/22:) Lipid Panel (06/12/22 06:00) Ed Iv/Invasive Line Start (06/11/22:19) Troponin I Neela (06/11/22:19) Aspirin Chewable Tablet (Baby Aspirin Ch (06/11/22 09:30) General/Regular (06/11/22 Breakfast) Troponin I Neela (06/11/22 11:31) Carbamazepine Tablet (Tegretol Tablet) (06/11/22 11:31) Medications Given in ED Current Medications Medications Dose Ordered Sig/Amy Route Start Time Stop Time Status Last Admin Dose Admin Aspirin 324 mg ONCE ONCE PO 06/11/22 09:30 06/11/22 09:31 DC 06/11/22 09:30 324 MG Vital Signs/I&O 06/11/22 08:58 Temp 36.1 Pulse 73 Resp 17 B/P (MAP) 113/83 (93) Progress Progress Note : Time: 12:21 Progress Note Rusty has been without any complaints throughout the duration of his ED visit. He was given his aspirin this morning, cardiac work-up initiated with chest x-ray EKG basic labs and cardiac enzymes x2. His second troponin is negative. His vital signs have been stable. I have recommended to the that she follow-up with Dr. Nam as it has been greater than a year since he seen a parachute harness rigger. She verbalized understanding. All questions are sought and answered. Initial ECG Impression Date: Jun 11, 2022 Initial ECG Impression Time: 09:10 Initial ECG Rate: 69 Initial ECG Rhythm: Normal Sinus Initial ECG Intervals: Normal Initial ECG Impression: Normal Diagnostic Imaging Diagonstic Imaging: Xray Comments [facility]. [place], [place] NAME: RUSTY COHN [facility] REC#: [id number] PT STATUS: REG ER : 1960 PHYSICIAN: NANCY ESPINAL MD ADMIT DATE: 06/11/22/ER Signed Date of Exam:06/11/22 CHEST 1 VIEW, AP/PA ONLY EXAM: CHEST 1 VIEW, AP/PA ONLY INDICATION: Chest pain. COMPARISON: None. FINDINGS: Normal heart size and central pulmonary vascularity. Lungs are clear. No pleural effusion or pneumothorax. No acute osseous findings. IMPRESSION: No acute cardiopulmonary findings Dictated by: Dictated on workstation # [id number] Dict: 06/11/22 0942 Trans: 06/11/22 1000 CVB [id number] Interpreted by: AMNA PALOMINO MD Electronically signed by: AMNA PALOMINO MD 06/11/22 1000 Departure Impression Primary Impression: Chest pain Qualified Codes: R07.9 - Chest pain, unspecified Additional Impressions: History of coronary artery disease History of traumatic brain injury Disposition: HOME, SELF-CARE Condition: Stable Departure-Patient Inst. Decision time for Depature: 12:23 Referrals: [facility] [place] (PCP/Family) Primary Care Physician OMKAR NAM MD Patient Instructions: Chest Pain That Is Not Caused by the Heart (DC) Add. Discharge Instructions: Continue routine pain medications as prescribed by your primary care doctor. Monitor for worsening or changing symptoms and return to the emergency room for any concerns. Drink plenty of fluids to stay well-hydrated. Follow-up with your primary care provider as scheduled. You also need to call for follow-up with the parachute harness rigger, Dr. Nam as he has had significant cardiac issues in the past and these need routine monitoring. Copy Copies To 1: SAMUEL BARTON DO Copies To 2: OMKAR NAM MD, KATHRYN M MD Jun 11, 2022 09:24
[2022-06-11 09:27] LABS: BASOPHILS % (AUTO) 1 % (0-10); EOSINOPHILS # (AUTO) 0.2 10^3/uL (0.0-0.3); EOSINOPHILS % (AUTO) 4 % (0-10); HEMATOCRIT 43 % (40-54); HEMOGLOBIN 14.6 g/dL (13.3-17.7); LYMPHOCYTES # (AUTO) 1.6 10^3/uL (1.0-4.0); LYMPHOCYTES % (AUTO) 44 % (12-44); MEAN CORPUSCULAR HEMOGLOBIN 34 pg (25-34); MEAN CORPUSCULAR HGB CONC 34 g/dL (32-36); MEAN CORPUSCULAR VOLUME 99 fL (80-99); MEAN PLATELET VOLUME 8.5 fL (9.0-12.2); MONOCYTES # (AUTO) 0.4 10^3/uL (0.0-1.0); MONOCYTES % (AUTO) 12 % (0-12); NEUTROPHILS # (AUTO) 1.4 10^3/uL (1.8-7.8); NEUTROPHILS % (AUTO) 38 % (42-75); PLATELET COUNT 203 10^3/uL (130-400); WHITE BLOOD COUNT 3.5 10^3/uL (4.3-11.0)
[2022-06-11] MEDS ORDERED: ASPIRIN 81 MG CHEW (CHILDREN'S ASA) PO ONE (09:30)
[2022-06-11 09:34] LABS: INR 0.9 (0.8-1.4); PROTHROMBIN TIME PATIENT 12.9 SEC (12.2-14.7)
[2022-06-11 09:36] LABS: ALBUMIN 4.1 GM/DL (3.2-4.5); POTASSIUM 4.1 MMOL/L (3.6-5.0)
[2022-06-11 09:37] LABS: CALCIUM 8.9 MG/DL (8.5-10.1)
[2022-06-11 09:39] LABS: TOTAL PROTEIN 7.2 GM/DL (6.4-8.2)
[2022-06-11 09:40] LABS: BILIRUBIN,TOTAL 0.5 MG/DL (0.1-1.0)
[2022-06-11 09:42] LABS: CREATININE SERUM 0.86 MG/DL (0.60-1.30)
--- NOTE | 2022-06-11 09:44 | Diagnostic Imaging Report ---
EXAM: CHEST 1 VIEW, AP/PA ONLY INDICATION: Chest pain. COMPARISON: None. FINDINGS: Normal heart size and central pulmonary vascularity. Lungs are clear. No pleural effusion or pneumothorax. No acute osseous findings. IMPRESSION: No acute cardiopulmonary findings Dictated by: Dictated on workstation # [id number]
[2022-06-11] MEDS ORDERED: carBAMazepine 200 MG (TEGretol) TAB PO STA (11:31)
[2022-06-11 12:41] VITALS: BP 114/96
== END 2022-06-11 12:43 | disposition home or self-care (01) ==
LOC: EDUNIT# 08:54 → ER 08:55
DX: I25.10 Atherosclerotic heart disease of native coronary artery without angina pectoris (principal); Z87.820 Personal history of traumatic brain injury; Z95.5 Presence of coronary angioplasty implant and graft; Z87.891 Personal history of nicotine dependence
CPT/HCPCS: 36415; 71045; 80053; 83735; 83874; 84484; 85025; 85610; 85730; 93005; 93041